=== PATIENT | male | born 1975 | race Caucasian/White ===

== ENCOUNTER → 2021-03-12 | Outpatient (CLI) | payer BC ==
[2021-03-12 15:39] LABS: BASOPHILS % 0.6 % (0.0-2.0); EOSINOPHILS % 1.5 % (0.0-5.0); HEMATOCRIT. 41.2 % (42.0-52.0); HEMOGLOBIN. 14.4 g/dL (14.0-18.0); LYMPHOCYTES % 28.3 % (20.0-50.0); MEAN CORPUSCULAR HEMOGLOBIN 31.4 pg (28.0-32.0); MEAN CORPUSCULAR VOLUME 89.4 fL (80.0-94.0); MEAN PLATELET VOLUME 7.9 fl (7.4-10.4); MONOCYTES % 7.8 % (2.0-8.0); NEUTROPHILS % 61.8 % (40.0-76.0); PLATELET 265 x1000/uL (130-400); RED BLOOD CELL COUNT 4.61 mill/uL (4.7-6.1); RED CELL DISTRIBUTION WIDTH 12.7 % (11.6-14.6)
[2021-03-12 15:49] LABS: CHLORIDE 100 mEq/L (98-107)
[2021-03-12 15:58] LABS: T4 FREE 1.25 ng/dL (0.76-1.46)
[2021-03-12 16:00] LABS: HDL CHOLESTEROL 83 mg/dL (40-59); LDL CHOLESTEROL 105 mg/dL (5-100)
== END | disposition home or self-care (01) ==
LOC: LAB 10:28
PROVIDERS: ATTEND Internal Medicine Gastroenterology
DX: R19.7 Diarrhea, unspecified (principal); R10.9 Unspecified abdominal pain
CPT/HCPCS: 36415; 80053; 80061; 82306; 82784; 83516; 83735; 84134; 84153; 84439; 84443; 85025; 86255; G0103

== ENCOUNTER → 2023-08-25 | Outpatient (CLI) | payer BC | END | disposition home or self-care (01) | LOC: MRI 12:38 | PROVIDERS: ATTEND Psychiatry & Neurology Neurology | DX: M47.815 Spondylosis without myelopathy or radiculopathy, thoracolumbar region (principal); M48.05 Spinal stenosis, thoracolumbar region; M48.02 Spinal stenosis, cervical region; M51.35 Other intervertebral disc degeneration, thoracolumbar region; M62.50 Muscle wasting and atrophy, not elsewhere classified, unspecified site; M50.221 Other cervical disc displacement at C4-C5 level; M50.322 Other cervical disc degeneration at C5-C6 level; M47.816 Spondylosis without myelopathy or radiculopathy, lumbar region; M41.86 Other forms of scoliosis, lumbar region; M51.26 Other intervertebral disc displacement, lumbar region; R26.89 Other abnormalities of gait and mobility; R40.4 Transient alteration of awareness | CPT/HCPCS: 70551; 72141; 72146; 72148 ==

== ENCOUNTER → 2023-08-29 | Outpatient (CLI) | payer BC ==
[2023-08-29 17:24] LABS: BASOPHILS % 0.7 % (0.0-2.0); EOSINOPHILS % 3.7 % (0.0-5.0); HEMATOCRIT. 35.3 % (42.0-52.0); LYMPHOCYTES % 21.6 % (20.0-50.0); MEAN CORPUSCULAR HEMOGLOBIN 32.3 pg (28.0-32.0); MEAN CORPUSCULAR VOLUME 94.9 fL (80.0-94.0); MEAN PLATELET VOLUME 7.7 fl (7.4-10.4); MONOCYTES % 7.4 % (2.0-8.0); NEUTROPHILS % 66.6 % (40.0-76.0); PLATELET 258 x1000/uL (130-400); RED BLOOD CELL COUNT 3.72 mill/uL (4.7-6.1); RED CELL DISTRIBUTION WIDTH 13.4 % (11.6-14.6); WHITE BLOOD COUNT 7.4 x1000/uL (4.5-11.0)
[2023-08-29 17:32] LABS: CLARITY URINE TURBID (CLEAR); COLOR URINE YELLOW (YELLOW); GLUCOSE URINE NEGATIVE (NEGATIVE); KETONES URINE TRACE (NEGATIVE); LEUKOCYTE ESTERASE URINE NEGATIVE (NEGATIVE); NITRITE URINE NEGATIVE (NEGATIVE); OCCULT BLOOD URINE NEGATIVE (NEGATIVE); PROTEIN URINE 2+ (NEGATIVE); SPECIFIC GRAVITY URINE 1.025 (1.005-1.030)
[2023-08-29 17:46] LABS: CHLORIDE 113 mEq/L (98-107); POTASSIUM 4.7 mEq/L (3.5-5.1); SODIUM 140 mEq/L (136-145)
[2023-08-29 17:47] LABS: CALCIUM 9.4 mg/dL (8.7-10.4); CARBON DIOXIDE 21 mEq/L (21-32)
[2023-08-29 17:52] LABS: CREATININE 1.6 mg/dL (0.6-1.3); TRIGLYCERIDE 126 mg/dL (0-150); UREA NITROGEN BLOOD 29 mg/dL (9-23)
[2023-08-29 17:53] LABS: BACTERIA URINE 1+; RBC URINE 0-2 /hpf (0-2); SQUAMOUS EPITHELIAL CELL URINE 1+ /lpf (RARE/1+); WBC URINE 0-2 /hpf (0-2)
[2023-08-29 17:53] LABS: LDL CHOLESTEROL 94 mg/dL (5-100)
[2023-08-29 17:54] LABS: AMORPHOUS SEDIMENT URINE 2+ /lpf
[2023-08-29 17:54] LABS: ALANINE AMINOTRANSFERASE 22 IU/L (10-49); ALBUMIN 4.5 g/dL (3.2-4.8); ASPARTATE AMINOTRANSFERASE 19 IU/L (<34); BILIRUBIN TOTAL 0.3 mg/dL (0.1-1.0); C REACTIVE PROTEIN HIGH SENS 0.25 mg/l (<1.00); CHOLESTEROL 163 mg/dL (<200); CREATINE KINASE 407 IU/L (46-171); GLUCOSE 136 mg/dL (70-105); HDL CHOLESTEROL 59 mg/dL (>55); PROTEIN TOTAL 7.2 g/dL (6.0-8.3)
[2023-08-29 17:55] LABS: CALCIUM OXALATE CRYSTALS URINE 1+ /lpf
[2023-08-29 17:56] LABS: T4 FREE 1.08 ng/dL (0.89-1.76)
[2023-08-29 17:57] LABS: FOLIC ACID (FOLATE) SERUM 9.92 ng/mL (>5.38); THYROID STIMULATING HORMONE 1.51 uIU/mL (0.55-4.78); VITAMIN B12 SERUM 375 pg/mL (211-911)
[2023-08-29 18:20] LABS: ERYTHROCYTE SEDIMENTATION RATE 20 mm/hr (0-15)
[2023-08-31 10:12] LABS: ANTI-NUCLEAR ANTIBODIES DIRECT Negative (Negative)
[2023-09-01 09:10] LABS: VITAMIN D 25-OH 11.2 ng/mL (30.0-100.0)
== END | disposition home or self-care (01) ==
LOC: LAB 16:25
PROVIDERS: ATTEND Internal Medicine Endocrinology, Diabetes & Metabolism
DX: I10 Essential (primary) hypertension (principal); E11.9 Type 2 diabetes mellitus without complications; E04.1 Nontoxic single thyroid nodule; E55.9 Vitamin D deficiency, unspecified; M79.10 Myalgia, unspecified site
CPT/HCPCS: 36415; 80053; 80061; 81003; 82043; 82306; 82550; 82570; 82607; 82746; 83036; 83921; 84439; 84443; 85025; 85651; 86038; 86141; 86430